=== PATIENT | male | born 1980 | race Asian ===

== ENCOUNTER 2017-10-13 13:44 | Emergency (ER) | payer BC ==
--- NOTE | 2017-10-13 14:34 | EDM.PDOC ---
ED HPI GENERAL MEDICAL PROBLEM - General Chief Complaint: Abdominal Pain Stated Complaint: UPPER ABD PAIN Time Seen by Provider: 10/13/17 14:16 Source of Information: Reports: Patient, RN Notes Reviewed - History of Present Illness INITIAL COMMENTS - FREE TEXT/NARRATIVE: 36-year-old male comes in with upper abdominal discomfort. This started yesterday and then after eating pepperoni pizza more severe today. His been primarily a burning type discomfort of the upper mid abdomen without radiation, nausea or vomiting. He has never really had anything of this nature before. There's been no lower abdominal discomfort. No fever or chills. No prior surgeries. Treatments DATA SOLUTIONS ARCHITECT: Reports: Other (see below) Other Treatments DATA SOLUTIONS ARCHITECT: none Upper Abdomen Pain Score (Numeric/FACES): 8 - Related Data Allergies Allergy/AdvReac Type Severity Reaction Status Date / Time No Known Allergies Allergy Verified 10/13/17 14:09 Home Meds: Home Meds Citalopram Hydrobromide [Celexa] 20 mg PO DAILY 10/13/17 [History] Past Medical History Psychiatric History: Reports: Anxiety Social & Family History - Tobacco Use Smoking Status *Q: Current Every Day Smoker Years of Tobacco use: 3 Packs/Tins Daily: 0.3 - Caffeine Use Caffeine Use: Reports: Coffee, Energy Drinks, Soda - Recreational Drug Use Recreational Drug Use: No ED ROS GENERAL - Review of Systems Review Of Systems: See Below Constitutional: Denies: Fever, Chills, Diaphoresis HEENT: Denies: Throat Pain Respiratory: Denies: Shortness of Breath, Pleuritic Chest Pain Cardiovascular: Denies: Chest Pain GI/Abdominal: Reports: Abdominal Pain. Denies: Melena, Nausea, Vomiting Musculoskeletal: Reports: No Symptoms Skin: Reports: No Symptoms Neurological: Reports: No Symptoms ED EXAM, GI/ABD - Physical Exam Exam: See Below General Appearance: Alert, No Apparent Distress Eyes: Bilateral: Normal Appearance Throat/Mouth: Normal Inspection Head: Atraumatic Neck: Supple Respiratory/Chest: No Respiratory Distress, Lungs Clear Cardiovascular: Regular Rate, Rhythm GI/Abdominal Exam: Soft, Tender (Slight upper midepigastric tenderness, abdomen otherwise completely soft and nontender, right lower quadrant completely nontender). No: Rigid, Rebound Back Exam: Normal Inspection Extremities: Normal Inspection Neurological: Alert, No Motor/Sensory Deficits Skin Exam: Warm, Dry, Normal Color Course - Vital Signs Last Recorded V/S: Last Vital Signs Temp 98.5 F 10/13/17 14:04 Pulse 62 10/13/17 14:04 Resp 20 10/13/17 14:04 BP 120/73 10/13/17 14:04 Pulse Ox 100 10/13/17 14:04 Departure - Departure Time of Disposition: 14:31 Disposition: Home, Self-Care 01 Condition: Fair Clinical Impression: Gastritis Qualifiers: Gastritis type: unspecified gastritis Chronicity: acute Gastritis bleeding: without bleeding Qualified Code(s): K29.00 - Acute gastritis without bleeding - Discharge Information Referrals: PCP,Not In Area [Primary Care Provider] - Forms: ED Department Discharge Additional Instructions: Ford diet for several days and then advance diet slowly as tolerated, Pepcid ( see famotidine (see a level OTC, 20 mg twice daily for 7-10 days and then thereafter as needed or similar symptoms. Return to ED symptoms worsening in any way, especially if pain moving to right lower abdomen as discussed. Follow- up at clinic as needed if symptoms not resolving as expected. Call [phone] as needed for appointment.
== END 2017-10-13 14:38 | disposition home or self-care (01) ==
LOC: JD.ED 13:44
DX: K29.00 Acute gastritis without bleeding (principal); F17.210 Nicotine dependence, cigarettes, uncomplicated
CPT/HCPCS: 99283